=== PATIENT | male | born 1950 | race Caucasian/White ===

== ENCOUNTER 2017-05-18 05:44 | Inpatient (IN) | payer MEDICARE, BC ==
[2017-05-18] MEDS: DEXTROSE 5%-0.45% NACL 1,000 ML IV (06:51)
[2017-05-18] MEDS ORDERED: GLUCOSE GEL 15 GRAM TUBE BUCCAL (07:00)
[2017-05-18] MEDS ORDERED: GLUCOSE GEL 15 GRAM TUBE PO ×2 (07:00)
[2017-05-18] MEDS ORDERED: DEXTROSE 50% 50 ML SYRINGE IV ×2 (07:00)
[2017-05-18] MEDS ORDERED: GLUCAGON 1 MG INJ IM (07:00)
[2017-05-18] MEDS: INSULIN ASPART [NOVOLOG] 3 ML PEN SC ×4 (08:15→20:16)
[2017-05-18] MEDS ORDERED: LORAZEPAM 2 MG INJ IV (10:30)
[2017-05-18] MEDS ORDERED: ONDANSETRON 4 MG INJ IV (10:30)
[2017-05-18] MEDS: FAMOTIDINE 20 MG TAB PO ×2 (10:31→20:17)
[2017-05-18] MEDS: DOCUSATE SODIUM 100 MG CAP PO ×2 (10:31→20:16)
[2017-05-18] MEDS: HYDROCODONE/APAP (5/325) TAB PO (10:32)
[2017-05-18 11:08] LABS: HEMOGLOBIN A1C 5.2 % (0-5.9)
[2017-05-18 11:17] LABS: INR 1.12; PROTIME 14.6 Sec (11.9-14.9); PT RATIO 1.1
[2017-05-18 11:18] LABS: PARTIAL THROMBOPLASTIN TIME 36.2 Sec (25.0-35.0)
[2017-05-18 11:24] LABS: ALANINE AMINOTRANSFERASE 29 IU/L (13-69); ALBUMIN 3.7 g/dl (3.3-4.9); ALKALINE PHOSPHATASE 92 IU/L (42-121); ASPARTATE AMINO TRANSFERASE 23 IU/L (15-46); BILIRUBIN,INDIRECT 0.7 mg/dl (0-1.1); BILIRUBIN,TOTAL 0.7 mg/dl (0.2-1.3); CHOL/HDL RATIO 4.4 RATIO; CHOLESTEROL 121 mg/dl (100-200); HDL CHOLESTEROL 27 mg/dl (30-78); LDL CHOLESTEROL,CALCULATED 72 mg/dl; MAGNESIUM 1.9 mg/dl (1.7-2.5); PHOSPHORUS 3.3 mg/dl (2.5-4.9); TOTAL PROTEIN 6.7 g/dl (6.1-8.1); TRIGLYCERIDES 108 mg/dl (0-149)
[2017-05-18] MEDS: GABAPENTIN 100 MG CAP PO ×2 (12:22→20:17)
[2017-05-18 12:56] LABS: ETHANOL < 10.0 mg/dl
[2017-05-18 13:35] LABS: THYROID STIMULATING HORMONE 0.389 MIU/L (0.465-4.680)
[2017-05-18] MEDS: THIAMINE IVPB (17:20)
[2017-05-18] MEDS: [UNRECOGNIZED DRUG - OTHER] IVPB (17:20)
[2017-05-18] MEDS: MULTIVITAMINS IVPB (17:20)
[2017-05-18] MEDS: FOLIC ACID IVPB (17:20)
[2017-05-18] MEDS: INSULIN GLARGINE [LANtus] 3 ML PEN SC (20:19)
[2017-05-19] MEDS: ACCU-CHEK XX (00:07)
[2017-05-19 06:07] LABS: ADD MAN DIFF? NO
[2017-05-19 06:16] LABS: WHITE BLOOD COUNT 4.5 10^3/ul (4.8-10.8)
[2017-05-19 06:16] LABS: ABNORMAL IP MESSAGE 1; BASOPHILS % 0.4 % (0.0-2.0); EOSINOPHILS # 0.1 10^3/ul (0.0-0.5); HEMATOCRIT 30.2 % (42.0-52.0); HEMOGLOBIN 9.8 g/dl (14.0-18.0); LYMPHOCYTES # 1.3 10^3/ul (0.8-2.9); LYMPHOCYTES % 27.6 % (15.0-51.0); MEAN CORPUSCULAR HEMOGLOBIN 29.2 pg (29.0-33.0); MEAN CORPUSCULAR HGB CONC 32.5 g/dl (32.0-37.0); MEAN CORPUSCULAR VOLUME 89.9 fl (82.0-101.0); MONOCYTE # 0.5 10^3/ul (0.3-0.9); MONOCYTES % 10.2 % (0.0-11.0); NEUTROPHIL # 2.7 10^3/ul (1.6-7.5); NEUTROPHILS % 59.6 % (39.0-77.0); PLATELET COUNT 89 10^3/UL (140-415); POSITIVE DIFF @See below; RED BLOOD COUNT 3.36 10^6/ul (4.70-6.10); RED CELL DISTRIBUTION WIDTH 14.5 % (11.5-14.5)
[2017-05-19 06:42] LABS: ANION GAP 14 (8-16); BLOOD UREA NITROGEN 15 mg/dl (7-20); CALCIUM 8.7 mg/dl (8.4-10.2); CARBON DIOXIDE 23 mmol/L (21-31); CHLORIDE 110 mmol/L (97-110); CREATININE 0.89 mg/dl (0.61-1.24); GLUCOSE 121 mg/dl (70-220); POTASSIUM 3.7 mmol/L (3.5-5.1); SODIUM 143 mmol/L (135-144)
[2017-05-19] MEDS: DOCUSATE SODIUM 100 MG CAP PO ×2 (08:10→20:23)
[2017-05-19] MEDS: INSULIN ASPART [NOVOLOG] 3 ML PEN SC ×4 (08:10→20:27)
[2017-05-19] MEDS: GABAPENTIN 100 MG CAP PO ×3 (08:10→20:23)
[2017-05-19] MEDS: FAMOTIDINE 20 MG TAB PO ×2 (08:10→20:23)
[2017-05-19] MEDS: MULTIVITAMINS IVPB (17:41)
[2017-05-19] MEDS: THIAMINE IVPB (17:41)
[2017-05-19] MEDS: FOLIC ACID IVPB (17:41)
[2017-05-19] MEDS: [UNRECOGNIZED DRUG - OTHER] IVPB (17:41)
[2017-05-19] MEDS: INSULIN GLARGINE [LANtus] 3 ML PEN SC (20:31)
[2017-05-20] MEDS: ACCU-CHEK XX (00:57)
[2017-05-20] MEDS: HYDROCODONE/APAP (5/325) TAB PO (01:27)
[2017-05-20 05:35] LABS: ADD MAN DIFF? NO
[2017-05-20 05:49] LABS: ABNORMAL IP MESSAGE 1; BASOPHILS % 0.3 % (0.0-2.0); EOSINOPHILS # 0.1 10^3/ul (0.0-0.5); HEMATOCRIT 30.5 % (42.0-52.0); HEMOGLOBIN 9.7 g/dl (14.0-18.0); LYMPHOCYTES # 1.3 10^3/ul (0.8-2.9); LYMPHOCYTES % 33.9 % (15.0-51.0); MEAN CORPUSCULAR HEMOGLOBIN 29.1 pg (29.0-33.0); MEAN CORPUSCULAR HGB CONC 31.8 g/dl (32.0-37.0); MEAN CORPUSCULAR VOLUME 91.6 fl (82.0-101.0); MEAN PLATELET VOLUME 11.3 fl (7.4-10.4); MONOCYTE # 0.4 10^3/ul (0.3-0.9); MONOCYTES % 9.9 % (0.0-11.0); NEUTROPHIL # 2.1 10^3/ul (1.6-7.5); NEUTROPHILS % 53.6 % (39.0-77.0); PLATELET COUNT 77 10^3/UL (140-415); POSITIVE DIFF @See below; RED BLOOD COUNT 3.33 10^6/ul (4.70-6.10); RED CELL DISTRIBUTION WIDTH 14.5 % (11.5-14.5)
[2017-05-20 06:18] LABS: ANION GAP 15 (8-16); BLOOD UREA NITROGEN 17 mg/dl (7-20); CALCIUM 8.8 mg/dl (8.4-10.2); CARBON DIOXIDE 20 mmol/L (21-31); CHLORIDE 111 mmol/L (97-110); CREATININE 0.82 mg/dl (0.61-1.24); GLUCOSE 121 mg/dl (70-220); POTASSIUM 3.8 mmol/L (3.5-5.1); SODIUM 142 mmol/L (135-144)
[2017-05-20] MEDS: INSULIN ASPART [NOVOLOG] 3 ML PEN SC ×4 (08:15→21:00)
[2017-05-20] MEDS: FAMOTIDINE 20 MG TAB PO ×2 (08:51→21:27)
[2017-05-20] MEDS: GABAPENTIN 100 MG CAP PO ×3 (08:51→21:26)
[2017-05-20] MEDS: DOCUSATE SODIUM 100 MG CAP PO ×2 (08:51→21:27)
[2017-05-20] MEDS: THIAMINE IVPB (18:24)
[2017-05-20] MEDS: MULTIVITAMINS IVPB (18:24)
[2017-05-20] MEDS: [UNRECOGNIZED DRUG - OTHER] IVPB (18:24)
[2017-05-20] MEDS: FOLIC ACID IVPB (18:24)
[2017-05-20] MEDS: INSULIN GLARGINE [LANtus] 3 ML PEN SC (21:31)
[2017-05-21] MEDS: ACCU-CHEK XX (02:00)
[2017-05-21 06:14] LABS: ADD MAN DIFF? NO
[2017-05-21 06:20] LABS: ABNORMAL IP MESSAGE 1; BASOPHILS % 0.4 % (0.0-2.0); EOSINOPHILS # 0.1 10^3/ul (0.0-0.5); HEMATOCRIT 31.4 % (42.0-52.0); HEMOGLOBIN 10.3 g/dl (14.0-18.0); LYMPHOCYTES # 1.4 10^3/ul (0.8-2.9); LYMPHOCYTES % 28.9 % (15.0-51.0); MEAN CORPUSCULAR HEMOGLOBIN 29.3 pg (29.0-33.0); MEAN CORPUSCULAR HGB CONC 32.8 g/dl (32.0-37.0); MEAN CORPUSCULAR VOLUME 89.5 fl (82.0-101.0); MEAN PLATELET VOLUME 10.7 fl (7.4-10.4); MONOCYTE # 0.5 10^3/ul (0.3-0.9); MONOCYTES % 9.1 % (0.0-11.0); NEUTROPHIL # 2.9 10^3/ul (1.6-7.5); NEUTROPHILS % 59.4 % (39.0-77.0); POSITIVE DIFF @See below; RED BLOOD COUNT 3.51 10^6/ul (4.70-6.10); RED CELL DISTRIBUTION WIDTH 14.6 % (11.5-14.5)
[2017-05-21 06:20] LABS: WHITE BLOOD COUNT 4.9 10^3/ul (4.8-10.8)
[2017-05-21 06:29] LABS: PLATELET COUNT 92 10^3/UL (140-415)
[2017-05-21 06:54] LABS: ANION GAP 14 (8-16); BLOOD UREA NITROGEN 16 mg/dl (7-20); CALCIUM 8.9 mg/dl (8.4-10.2); CARBON DIOXIDE 22 mmol/L (21-31); CHLORIDE 111 mmol/L (97-110); CREATININE 0.82 mg/dl (0.61-1.24); GLUCOSE 119 mg/dl (70-220); POTASSIUM 4.1 mmol/L (3.5-5.1); SODIUM 143 mmol/L (135-144)
[2017-05-21] MEDS: GABAPENTIN 100 MG CAP PO ×3 (07:57→20:47)
[2017-05-21] MEDS: DOCUSATE SODIUM 100 MG CAP PO ×2 (07:57→20:47)
[2017-05-21] MEDS: FAMOTIDINE 20 MG TAB PO ×2 (07:57→20:47)
[2017-05-21] MEDS: INSULIN ASPART [NOVOLOG] 3 ML PEN SC ×4 (08:11→20:50)
[2017-05-21] MEDS: MULTIVITAMINS IVPB (18:06)
[2017-05-21] MEDS: FOLIC ACID IVPB (18:06)
[2017-05-21] MEDS: THIAMINE IVPB (18:06)
[2017-05-21] MEDS: [UNRECOGNIZED DRUG - OTHER] IVPB (18:06)
[2017-05-21] MEDS: INSULIN GLARGINE [LANtus] 3 ML PEN SC (20:54)
[2017-05-22] MEDS: ACCU-CHEK XX (02:00)
[2017-05-22] MEDS: INSULIN ASPART [NOVOLOG] 3 ML PEN SC ×2 (08:15→12:15)
[2017-05-22] MEDS: DOCUSATE SODIUM 100 MG CAP PO (08:24)
[2017-05-22] MEDS: GABAPENTIN 100 MG CAP PO ×2 (09:28→12:47)
[2017-05-22] MEDS: FAMOTIDINE 20 MG TAB PO (09:28)
== END 2017-05-22 15:40 | disposition home health service (06) | DRG 948 ==
LOC: MS2 05:44
PROVIDERS: Internal Medicine
DX: R41.82 Altered mental status, unspecified (principal); K70.30 Alcoholic cirrhosis of liver without ascites; E11.9 Type 2 diabetes mellitus without complications; Z79.4 Long term (current) use of insulin; Z87.891 Personal history of nicotine dependence; F41.9 Anxiety disorder, unspecified; F10.21 Alcohol dependence, in remission; M25.562 Pain in left knee; T42.4X5A Adverse effect of benzodiazepines, initial encounter; Z86.19 Personal history of other infectious and parasitic diseases
CPT/HCPCS: 70551; 73562; 80048; 80061; 80076; 80306; 82962; 83036; 83735; 84100; 84443; 85025; 85610; 85730; 97110; 97116; 97164; 97530

== ENCOUNTER 2018-03-30 21:37 | Inpatient (IN) | payer MEDICARE, BC ==
[2018-03-30] MEDS ORDERED: ONDANSETRON 4 MG INJ IV (22:00)
[2018-03-30] MEDS ORDERED: BISACODYL (EC) 5 MG TAB PO (22:00)
[2018-03-30] MEDS ORDERED: ACETAMINOPHEN 325 MG TAB PO (22:00)
[2018-03-30] MEDS ORDERED: NACL 0.9% 3 ML SYG IV (22:00)
[2018-03-30] MEDS ORDERED: DOCUSATE SODIUM 100 MG CAP PO (22:00)
[2018-03-30 22:56] LABS: ADD MAN DIFF? NO
[2018-03-30 23:00] LABS: BASOPHILS % 0.6 % (0.0-2.0); EOSINOPHILS # 0.2 10^3/ul (0.0-0.5); EOSINOPHILS % 3.5 % (0.0-7.0); HEMATOCRIT 39.4 % (42.0-52.0); HEMOGLOBIN 12.6 g/dl (14.0-18.0); LYMPHOCYTES # 1.7 10^3/ul (0.8-2.9); LYMPHOCYTES % 37.7 % (15.0-51.0); MEAN CORPUSCULAR HEMOGLOBIN 28.6 pg (29.0-33.0); MEAN CORPUSCULAR VOLUME 89.5 fl (82.0-101.0); MEAN PLATELET VOLUME 11.1 fl (7.4-10.4); MONOCYTE # 0.3 10^3/ul (0.3-0.9); MONOCYTES % 6.7 % (0.0-11.0); NEUTROPHIL # 2.4 10^3/ul (1.6-7.5); NEUTROPHILS % 51.3 % (39.0-77.0); PLATELET COUNT 102 10^3/UL (140-415); RED CELL DISTRIBUTION WIDTH 13.9 % (11.5-14.5)
[2018-03-30 23:00] LABS: WHITE BLOOD COUNT 4.6 10^3/ul (4.8-10.8)
[2018-03-30 23:07] LABS: HEMOGLOBIN A1C 4.9 % (0-5.9)
[2018-03-30 23:14] LABS: AMMONIA 11 umol/l (9-30)
[2018-03-30 23:16] LABS: ALANINE AMINOTRANSFERASE 20 IU/L (13-69); ALBUMIN 4.3 g/dl (3.3-4.9); ALBUMIN/GLOBULIN RATIO 1.43; ALKALINE PHOSPHATASE 82 IU/L (42-121); ANION GAP 7 (5-13); ASPARTATE AMINO TRANSFERASE 29 IU/L (15-46); BILIRUBIN,INDIRECT 0.7 mg/dl (0-1.1); BILIRUBIN,TOTAL 0.7 mg/dl (0.2-1.3); BLOOD UREA NITROGEN 21 mg/dl (7-20); CALCIUM 9.5 mg/dl (8.4-10.2); CARBON DIOXIDE 29 mmol/L (21-31); CHLORIDE 106 mmol/L (97-110); CHOL/HDL RATIO 4.3 RATIO; CHOLESTEROL 156 mg/dl (100-200); CREATININE 0.95 mg/dl (0.61-1.24); Estimated GFR > 60 mL/min (>60); GLUCOSE 83 mg/dl (70-220); HDL CHOLESTEROL 36 mg/dl (30-78); LDL CHOLESTEROL,CALCULATED 104 mg/dl; MAGNESIUM 2.1 mg/dl (1.7-2.5); POTASSIUM 4.3 mmol/L (3.5-5.1); SODIUM 142 mmol/L (135-144); TOTAL PROTEIN 7.3 g/dl (6.1-8.1); TRIGLYCERIDES 78 mg/dl (0-149)
[2018-03-30 23:18] LABS: ETHANOL < 10.0 mg/dl (0-0)
[2018-03-31] MEDS: traMADol 50 MG TAB PO (06:15)
[2018-03-31 06:59] LABS: HAAIG REFLEX REFLEX FILED
[2018-03-31 07:57] LABS: HEPATITIS B SURFACE ANTIGEN NEGATIVE (NEGATIVE)
[2018-03-31 08:15] LABS: HEPATITIS B CORE ANTIBODY NEGATIVE (NEGATIVE); HEPATITIS C VIRAL ANTIBODY NEGATIVE (NEGATIVE)
[2018-03-31 08:16] LABS: ADD UMIC NO; UR ASCORBIC ACID NEGATIVE (NEGATIVE); UR BILIRUBIN (Dip) NEGATIVE (NEGATIVE); UR BLOOD (Dip) NEGATIVE (NEGATIVE); UR CLARITY CLEAR (CLEAR); UR COLOR YELLOW (YELLOW); UR GLUCOSE (Dip) NEGATIVE (NEGATIVE); UR KETONES (Dip) NEGATIVE (NEGATIVE); UR LEUKOCYTE ESTERASE (Dip) NEGATIVE Leu/ul (NEGATIVE); UR NITRITE (Dip) NEGATIVE (NEGATIVE); UR SPECIFIC GRAVITY (Dip) 1.012 (1.003-1.030); UR TOTAL PROTEIN (Dip) NEGATIVE (NEGATIVE); UR UROBILINOGEN (Dip) 2+ mg/dL (NEGATIVE)
[2018-03-31 09:14] LABS: AMPHETAMINE/METHAMPHETAMINE Negative (NEGATIVE); BARBITURATES Negative (NEGATIVE); CANNABINOIDS Negative (NEGATIVE); COCAINE Negative (NEGATIVE); OPIATES Negative (NEGATIVE)
[2018-03-31 09:24] LABS: BENZODIAZEPINES Positive (NEGATIVE)
[2018-03-31 19:16] LABS: RAPID PLASMA REAGIN NONREACTIVE (NR)
[2018-04-01] MEDS: traMADol 50 MG TAB PO (02:18)
[2018-04-01] MEDS: LORAZEPAM 2 MG INJ IV (02:18)
[2018-04-02] MEDS: traMADol 50 MG TAB PO (05:15)
== END 2018-04-02 14:55 | disposition home health service (06) | DRG 71 ==
LOC: 6WM 21:37 → 2NE 04-01 22:34
PROVIDERS: Internal Medicine
DX: G93.49 Other encephalopathy (principal); B19.9 Unspecified viral hepatitis without hepatic coma; A69.20 Lyme disease, unspecified; K72.90 Hepatic failure, unspecified without coma; K74.60 Unspecified cirrhosis of liver; E11.9 Type 2 diabetes mellitus without complications; M72.0 Palmar fascial fibromatosis [Dupuytren]; F03.90 Unspecified dementia, unspecified severity, without behavioral disturbance, psychotic disturbance, mood disturbance, and anxiety; R16.1 Splenomegaly, not elsewhere classified
CPT/HCPCS: 76700; 80053; 80061; 80307; 81003; 82140; 82962; 83036; 83735; 84443; 85025; 86592; 86617; 86704; 86708; 86709; 86803; 87340; 87522